=== PATIENT | female | born 1960 | race African-American/Black ===

== ENCOUNTER 2018-05-11 11:58 | Emergency (ER) | payer MEDICAID ==
[2018-05-11 12:03] VITALS: BP 135/71
[2018-05-11] MEDS ORDERED: KETOROLAC TROMETHAMINE 60 MG/2 ML SDV IM ONE (12:28)
[2018-05-11] MEDS ORDERED: DICYCLOMINE HCL 20 MG TABLET PO ONE (12:28)
--- NOTE | 2018-05-11 12:29 | ER Document Report ---
ED Medical Screen (RME) - General Chief Complaint: Abdominal Pain Stated Complaint: BACK/STOMACH PAIN Time Seen by Provider: 05/11/18 12:26 Notes: 58 years old female presents today with 4-day history of abdominal pain in the flanks as well as flank pain radiating to the front. This is on and off. Associated with nausea and vomited twice on Friday. No diarrhea but did not have any bowel movement since Friday morning. Irregular bowel habit. No fever chills or other constitutional symptoms. Denies any dysuria frequency urgency. Denies any narcotic pain medications intake. On examination-diffuse abdominal tenderness over the right and left side of the flanks. Positive bowel sounds - Related Data Allergies/Adverse Reactions: No Known Allergies Allergy (Unverified 05/11/18 11:59) Physical Exam - Vital signs Vitals: Temp Pulse Resp BP Pulse Ox 97.8 F 69 18 135/71 H 96 05/11/18 12:02 05/11/18 12:02 05/11/18 12:02 05/11/18 12:02 05/11/18 12:02 Course - Vital Signs Vital signs: Temp Pulse Resp BP Pulse Ox 97.8 F 69 18 135/71 H 96 05/11/18 12:02 05/11/18 12:02 05/11/18 12:02 05/11/18 12:02 05/11/18 12:02 Doctor's Discharge - Discharge Referrals: NADER PRICE PA [Primary Care Provider] - Follow up as needed
[2018-05-11 12:59] LABS: ABSOLUTE BASOPHILS # (AUTO) 0.1 10^3/uL (0.0-0.2); ABSOLUTE LYMPHOCYTES (AUTO) 1.6 10^3/uL (0.5-4.7); ABSOLUTE MONOCYTES (AUTO) 0.8 10^3/uL (0.1-1.4); ABSOLUTE NEUT (AUTO) 8.2 10^3/uL (1.7-8.2); EOSINOPHILS % (AUTO) 0.2 % (0-6); HEMOGLOBIN 13.7 g/dL (12.0-15.5); LYMPHOCYTES % (AUTO) 14.7 % (13-45); MEAN CORPUSCULAR HEMOGLOBIN 28.4 pg (27.0-33.4); MEAN CORPUSCULAR HGB CONC 34.3 g/dL (32.0-36.0); MEAN CORPUSCULAR VOLUME 83 fl (80-97); MONOCYTES % (AUTO) 7.2 % (3-13); PLATELET COUNT 243 10^3/uL (150-450); RED BLOOD COUNT 4.83 10^6/uL (3.72-5.28); RED CELL DISTRIBUTION WIDTH 14.3 % (11.5-14.0); SEGMENTED NEUTROPHILS % (AUTO) 76.9 % (42-78); TOTAL CELLS COUNTED % (AUTO) 100 %; WHITE BLOOD COUNT 10.7 10^3/uL (4.0-10.5)
[2018-05-11 13:11] LABS: APPEARANCE,URINE SLIGHTLY-CLOUDY; BILIRUBIN,URINE MODERATE (NEGATIVE); COLOR,URINE AMBER; GLUCOSE, URINE 50 mg/dL (NEGATIVE); KETONES,URINE 80 mg/dL (NEGATIVE); LEUKOCYTE ESTERASE,URINE NEGATIVE (NEGATIVE); NITRITE,URINE NEGATIVE (NEGATIVE); PROTEIN,URINE 100 mg/dL (NEGATIVE); URINE SPECIFIC GRAVITY 1.035
--- NOTE | 2018-05-11 13:36 | RADIOLOGY REPORT (SQ) ---
EXAM DESCRIPTION: ACUTE ABDOMEN SERIES COMPLETED DATE/TIME: 05/11/2018 1:04 pm REASON FOR STUDY: Abdominal pain COMPARISON: None. NUMBER OF VIEWS: Three views. TECHNIQUE: Frontal chest, supine abdomen and upright/decubitus abdomen radiographic images acquired. LIMITATIONS: None. FINDINGS: CHEST: Lungs clear of infiltrates. FREE AIR: None. No abnormal gas collections. BOWEL GAS PATTERN: Nonobstructive pattern. No dilated loops or air fluid levels. CALCIFICATIONS: No suspicious calcifications. HARDWARE: None in the abdomen. SOFT TISSUES: No gross mass or suggestion of organomegaly. BONES: No acute fracture. No worrisome bone lesions. OTHER: No other significant finding. IMPRESSION: NO RADIOGRAPHIC EVIDENCE FOR ACUTE ABDOMINAL DISEASE. TECHNICAL DOCUMENTATION: JOB ID: [id number] [employer]- All Rights Reserved Reading location - IP/workstation name: [email or web address]
--- NOTE | 2018-05-11 14:09 | ER Document Report ---
ED General - General Chief Complaint: Abdominal Pain Stated Complaint: BACK/STOMACH PAIN Time Seen by Provider: 05/11/18 12:26 Notes: Patient is a 58-year-old female presenting with abdominal pain. She says that it all started on Bruce night, which is about 3 days ago, after eating takeout shrimp and coleslaw. She explains crampy abdominal pain "like electricity" which rated around her abdomen. It is since improved, and got even better after she got Toradol and Bentyl from the triage provider. She had some nausea and vomiting and not ceased. She has not had a bowel movement. She is diabetic sugars are okay. Incidentally she is also on 2 different antibiotics "for a knot on my head" which looks like an abscess. Denies fevers abdominal surgeries blood per rectum dizziness or urinary symptoms. - Related Data Allergies/Adverse Reactions: No Known Allergies Allergy (Unverified 05/11/18 11:59) Past Medical History - Social History Smoking Status: Never Smoker Chew tobacco use (# tins/day): No Frequency of alcohol use: None Drug Abuse: None Family History: None Patient has suicidal ideation: No Patient has homicidal ideation: No Endocrine Medical History: Reports: Hx Diabetes Mellitus Type 2 Renal/ Medical History: Denies: Hx Peritoneal Dialysis Past Surgical History: Reports: Hx Hysterectomy Review of Systems - Review of Systems Notes: REVIEW OF SYSTEMS GEN: Denies fever, chills, weight loss ENT: Denies sore throat, nasal discharge, ear pain EYES: Denies blurry vision, eye pain, discharge CV: Denies chest pain, palpitations, edema RESP: Denies cough, shortness of breath, wheezing GI: Pain vomiting, resolving no diarrhea MSK: Denies joint pain/swelling, edema, SKIN: Denies rash, skin lesions LYMPH: Denies swollen glands/lymph nodes NEURO: Denies headache, focal weakness or numbness, dizziness PSYCH: Denies depression, suicidal or homicidal ideation PHYSICAL EXAMINATION General: No acute distress, well-nourished Head: Atraumatic, normocephalic ENT: Mouth normal, oropharynx moist, no exudates or tonsillar enlargement Eyes: Conjunctiva normal, pupils equal, lids normal Neck: No JVD, supple, no guarding CVS: Normal rate, regular rhythm, no murmurs Resp: No resp distress, equal and normal breath sounds bilaterally GI: Nondistended, soft, mild epi gastric tenderness to palpation, no rebound or guarding Ext: No deformities, no edema, normal range of motion in upper and lower ext Back: No CVA or midline TTP Skin: No rash, warm Lymphatic: No lymphadeopathy noted Neuro: Awake, alert. Face symmetric. GCS 15. Physical Exam - Vital signs Vitals: Temp Pulse Resp BP Pulse Ox 97.8 F 69 18 135/71 H 96 05/11/18 12:05/11/18 12:05/11/18 12:02 05/11/18 12:05/11/18 12:02 Course - Re-evaluation Re-evalutation: 05/11/18 14:11 Patient presents with resolved abdominal pain mostly epigastric for 3 days after a questionable meal intake. She had lots of vomiting but that is now better. She is keeping herself well-hydrated. She does not have diarrhea. There is no fever, the vital signs are normal. Tenderness which seemed diffuse at triage is now isolated to the epigastrium with no rebound guarding or signs. She is sitting up in the bed comfortably interacting with me with a smile on her face. Her labs been done and her white count is borderline elevated, chemistry was hemolyzed. She does not have vomiting and her sugars at home are normal so I doubt DKA. No evidence of UTI on physical exam or urinalysis. Next line she had an acute abdominal series ordered at triage which is normal. I do not believe she requires further imaging and I think she probably is suffering from a foodborne illness. Did discuss the possibility of intra-abdominal infection and surgical emergency which I feel is quite low, and given the fact that she is already tolerating p.o. and feels better after Bentyl I think she stable for discharge home with proper precautions. Prescribed Bentyl. She does have a resolving abscess on her occiput which looks good, so asked her to stop her antibiotics and she is Nuno been on for 5 days and may be extruding to her symptoms. Advance diet as tolerated. I have discussed with the patient there likely diagnosis, aftercare plan, follow -up plans and my usual and customary return precautions. They verbalized understanding of this. - Vital Signs Vital signs: Temp Pulse Resp BP Pulse Ox 97.8 F 69 18 135/71 H 96 05/11/18 12:02 05/11/18 12:02 05/11/18 12:02 05/11/18 12:02 05/11/18 12:02 - Laboratory Result Diagrams: 05/11/18 12:36 05/11/18 12:36 Laboratory results interpreted by me: 05/11/18 05/11/18 12:36 12:36 WBC 10.7 H RDW 14.3 H Urine Protein 100 H Urine Glucose (UA) 50 H Urine Ketones 80 H Urine Bilirubin MODERATE H Urine Urobilinogen 4.0 H - Diagnostic Test Radiology reviewed: Image reviewed Discharge - Discharge Clinical Impression: Epigastric abdominal pain Condition: Good Disposition: HOME, SELF-CARE Instructions: Abdominal Pain ([facility]), Antispasmodics ([facility]) Prescriptions: Dicyclomine HCl [Bentyl 10 mg Capsule] 1 cap PO TID #10 cap Referrals: NADER PRICE PA [Primary Care Provider] - Follow up as needed
== END 2018-05-11 14:19 | disposition home or self-care (01) ==
LOC: ER 11:58
DX: R10.13 Epigastric pain (principal); R11.2 Nausea with vomiting, unspecified; E11.9 Type 2 diabetes mellitus without complications; R22.0 Localized swelling, mass and lump, head
CPT/HCPCS: 99284; 36415; 85025; 81001; 74022; J3490; J1885

== ENCOUNTER 2018-05-12 18:17 | Emergency (ER) | payer MEDICAID ==
--- NOTE | 2018-05-12 19:09 | ER Document Report ---
ED Medical Screen (RME) - General Chief Complaint: Constipation Stated Complaint: ABDOMINAL PAIN Time Seen by Provider: 05/12/18 19:06 Notes: 58 years old female presents today with abdominal pain, she was seen here yesterday for abdominal pain diagnosed with constipation. She has not had a bowel movement for the last 5-6 days. Presents with lower abdominal pain. On examination seems to be in pain over the lower abdomen. TRAVEL OUTSIDE OF THE [place] IN LAST 30 DAYS: No - Related Data Allergies/Adverse Reactions: No Known Allergies Allergy (Verified 05/12/18 18:19) Past Medical History - Social History Chew tobacco use (# tins/day): No Frequency of alcohol use: None Drug Abuse: None Endocrine Medical History: Reports: Hx Diabetes Mellitus Type 2 Renal/ Medical History: Denies: Hx Peritoneal Dialysis Past Surgical History: Reports: Hx Hysterectomy Doctor's Discharge - Discharge Referrals: ANDER PRICE PA [Primary Care Provider] - Follow up as needed
[2018-05-12] MEDS ORDERED: FENTANYL CITRATE INJ/PF 100 MCG/2 ML AMPUL IV ONE (19:38)
--- NOTE | 2018-05-12 19:38 | ER Document Report ---
ED General - General Chief Complaint: Constipation Stated Complaint: ABDOMINAL PAIN Time Seen by Provider: 05/12/18 19:06 Notes: 58-year-old lady presents with ongoing abdominal pain. Now generalized. She was seen by me last night for isolated epigastric pain which resolved with Bentyl, which began several days prior in the setting of possible food ingestion. She states that the pain is now worse more generalized with nausea anorexia and no bowel movements. She has not vomited and has no fever. TRAVEL OUTSIDE OF THE [place] IN LAST 30 DAYS: No - Related Data Allergies/Adverse Reactions: No Known Allergies Allergy (Verified 05/12/18 18:19) Past Medical History - Social History Smoking Status: Current Every Day Smoker Chew tobacco use (# tins/day): No Frequency of alcohol use: None Drug Abuse: None Family History: None Patient has suicidal ideation: No Patient has homicidal ideation: No Endocrine Medical History: Reports: Hx Diabetes Mellitus Type 2 Renal/ Medical History: Denies: Hx Peritoneal Dialysis Past Surgical History: Reports: Hx Hysterectomy Review of Systems - Review of Systems Notes: REVIEW OF SYSTEMS GEN: Denies fever, chills, weight loss ENT: Denies sore throat, nasal discharge, ear pain EYES: Denies blurry vision, eye pain, discharge CV: Denies chest pain, palpitations, edema RESP: Denies cough, shortness of breath, wheezing GI: Abdominal pain a MSK: Denies joint pain/swelling, edema, SKIN: Denies rash, skin lesions LYMPH: Denies swollen glands/lymph nodes NEURO: Denies headache, focal weakness or numbness, dizziness PSYCH: Denies depression, suicidal or homicidal ideation PHYSICAL EXAMINATION General: No acute distress, well-nourished Head: Atraumatic, normocephalic ENT: Mouth normal, oropharynx moist, no exudates or tonsillar enlargement Eyes: Conjunctiva normal, pupils equal, lids normal Neck: No JVD, supple, no guarding CVS: Normal rate, regular rhythm, no murmurs Resp: No resp distress, equal and normal breath sounds bilaterally GI: Veys versus distended, exquisite tenderness throughout the abdominal area with positive guarding and mild rebound Ext: No deformities, no edema, normal range of motion in upper and lower ext Back: No CVA or midline TTP Skin: No rash, warm Lymphatic: No lymphadeopathy noted Neuro: Awake, alert. Face symmetric. GCS 15. Physical Exam - Vital signs Vitals: Temp Pulse Resp BP Pulse Ox 97.5 F 58 L 18 114/63 100 05/12/18 18:27 05/12/18 18:27 05/12/18 18:27 05/12/18 18:27 05/12/18 18:27 Course - Re-evaluation Re-evalutation: 05/13/18 02:01 Patient presents with acute abdominal pain with guarding concerning for intra- abdominal infection. Given pain medicine made n.p.o., ordered labs. Labs show neutrophilic shift but no true white count. Also show elevated LFTs but normal lipase. CT shows possible cholecystitisdiscussed with Dr. Brand. Patient reassessedfeeling better after medication. Ordered ultrasound per Dr. Brand's recommendation. This shows sludge and possible choledocholithiasis. Discussed with GI, Dr. Mcconnell, who cannot and do not does not do ERCP and recommended transfer. Discussed with [facility]. Discussed with [facility]. She was given broad-spectrum antibiotics to cover cholangitisdid not seem to have this at this time and is not altered. - Vital Signs Vital signs: Temp Pulse Resp BP Pulse Ox 98.8 F 63 18 116/62 93 05/12/18 23:48 05/12/18 23:48 05/12/18 23:48 05/12/18 23:48 05/12/18 23:48 - Laboratory Result Diagrams: 05/12/18 19:57 05/12/18 19:57 Laboratory results interpreted by me: 05/12/18 05/12/18 05/12/18 19:57 19:57 19:57 RDW 14.2 H Seg Neutrophils % 80.1 H Glucose 249 H Total Bilirubin 6.9 H Direct Bilirubin 5.8 H AST 162 H ALT 378 H Alkaline Phosphatase 373 H - Diagnostic Test Radiology reviewed: Image reviewed, Reports reviewed Discharge - Discharge Clinical Impression: Acute cholecystitis Condition: Fair Disposition: Critical [facility] Hospital Referrals: NADER PRICE PA [NO LOCAL MD] - Follow up as needed
[2018-05-12 20:13] LABS: ABSOLUTE LYMPHOCYTES (AUTO) 1.4 10^3/uL (0.5-4.7); ABSOLUTE MONOCYTES (AUTO) 0.5 10^3/uL (0.1-1.4); ABSOLUTE NEUT (AUTO) 7.7 10^3/uL (1.7-8.2); BASOPHILS % (AUTO) 0.2 % (0-2); EOSINOPHILS % (AUTO) 0.2 % (0-6); HEMATOCRIT 37.9 % (36.0-47.0); LYMPHOCYTES % (AUTO) 14.1 % (13-45); MEAN CORPUSCULAR HEMOGLOBIN 28.4 pg (27.0-33.4); MEAN CORPUSCULAR HGB CONC 34.3 g/dL (32.0-36.0); MEAN CORPUSCULAR VOLUME 83 fl (80-97); MONOCYTES % (AUTO) 5.4 % (3-13); PLATELET COUNT 230 10^3/uL (150-450); RED BLOOD COUNT 4.57 10^6/uL (3.72-5.28); RED CELL DISTRIBUTION WIDTH 14.2 % (11.5-14.0); SEGMENTED NEUTROPHILS % (AUTO) 80.1 % (42-78); TOTAL CELLS COUNTED % (AUTO) 100 %; WHITE BLOOD COUNT 9.6 10^3/uL (4.0-10.5)
[2018-05-12 20:31] LABS: ANION GAP 15 (5-19); BLOOD UREA NITROGEN 12 mg/dL (7-20); CARBON DIOXIDE 25 mmol/L (22-30); CHLORIDE 99 mmol/L (98-107); GLUCOSE 249 mg/dL (75-110); POTASSIUM 3.6 mmol/L (3.6-5.0)
[2018-05-12] MEDS ORDERED: AMPICILLIN SOD/SULBACTAM 3 GM VIAL IV ONE (21:05)
--- NOTE | 2018-05-12 21:21 | RADIOLOGY REPORT (SQ) ---
EXAM DESCRIPTION: CT ABDOMEN PELVIS WITH IV CONTRAST COMPLETED DATE/TME: 05/12/2018 19:24 CLINICAL HISTORY: 58 years, Female, abdominal pain COMPARISON: None. TECHNIQUE: 425 Images stored on PACS. All CT scanners at this facility use dose modulation, iterative reconstruction, and/or weight based dosing when appropriate to reduce radiation dose to as low as reasonably achievable (ALARA). [facility]: Dose Right [facility]: CareDose [facility]: Dose Right [facility]: Teradose 4D [facility]: [email or web address] LIMITATIONS: None. FINDINGS: Limited evaluation of the lung bases is unremarkable. Osseous structures are grossly intact. Fatty infiltrative change to the liver. The spleen, adrenal glands, and pancreas are unremarkable. Simple appearing renal cysts bilaterally. The kidneys are otherwise unremarkable. Normal appendix. Abundant stool in the colon. No gross evidence for bowel obstruction. No free air or free fluid. Mild atheromatous change. The gallbladder appears mildly distended. There is pericholecystic fluid with a prominent appearance to the biliary tree. The CBD measures 9.3 mm. There are punctate densities in the region of the distal common bile duct for which distal CBD stones are not excluded. Best seen on image #34, series #3. Acute cholecystitis is not excluded. Consider further assessment with dedicated ultrasound and/or hepatobiliary imaging. IMPRESSION: Distended appearance to the gallbladder with pericholecystic fluid and biliary ductal dilatation for which cholecystitis is not excluded. Consider further assessment with ultrasound and/or nuclear medicine imaging. In addition, questionable tiny stones near the region of the distal CBD for which choledocholithiasis is not excluded. This could be confirmed with MRCP or ERCP.. Fatty infiltrative change to the liver. TECHNICAL DOCUMENTATION: Quality ID # 436: Final reports with documentation of one or more dose reduction techniques (e.g., Automated exposure control, adjustment of the mA and/or kV according to patient size, use of iterative reconstruction technique) 2010 [employer]- All Rights Reserved
[2018-05-12 21:48] LABS: ALANINE AMINOTRANSFERASE 378 U/L (9-52); ALBUMIN 3.9 g/dL (3.5-5.0); ALKALINE PHOSPHATASE 373 U/L (38-126); ASPARTATE AMINO TRANSFERASE 162 U/L (14-36); BILIRUBIN,DIRECT 5.8 mg/dL (0.0-0.4); BILIRUBIN,TOTAL 6.9 mg/dL (0.2-1.3)
[2018-05-12] MEDS ORDERED: MORPHINE SULFATE 10 MG/ML INJ IV ONE (23:26)
[2018-05-12] MEDS ORDERED: NORMAL SALINE 1000 ML 1,000 ML IV ONE (23:26)
--- NOTE | 2018-05-12 23:45 | RADIOLOGY REPORT (SQ) ---
EXAM DESCRIPTION: US ABDOMEN LIMITED COMPLETED DATE/TME: 05/12/2018 21:05 CLINICAL HISTORY: 58 years, Female, mike Compared to CT abdomen pelvis dated 05/12/2018 at 8:54 PM. FINDINGS: Pancreas is not well visualized due to shadowing. Aorta and IVC are within normal limits. Liver demonstrates fatty infiltration but no focal lesions. Portal vein is patent and demonstrates hepatopedal flow. Gallbladder demonstrates numerous small echogenic foci consistent with calculi. Gallbladder wall is moderately thickened to 5 mm. Gallbladder is also significantly distended. No significant biliary dilatation with CBD measuring 5 mm. No right hydronephrosis. No right upper quadrant ascites. IMPRESSION: Cholelithiasis with moderate gallbladder wall thickening, consistent with cholecystitis.
[2018-05-13 01:59] VITALS: BP 114/63
--- NOTE | 2018-05-13 09:01 | PDOC CONSULTATION ---
History of Present Illness Admission Date/PCP: 05/12/18 Patient complains of: abdominal pains History of Present Illness: DIXON CARDENAS is a 58 year old female with a few days duration of persistent epigastric pains associated with nausea and constipation. Had Ct scan of abdomen and ultrasound which showed acute cholecystitis with cholelithiasis and choledocholethiasis with elevated LFTs. Past Medical History Endocrine Medical History: Reports: Diabetes Mellitus Type 2 Past Surgical History Past Surgical History: Reports: Hysterectomy Social History Smoking Status: Current Every Day Smoker Family History Family History: None Parental Family History Reviewed: Yes Children Family History Reviewed: No Sibling(s) Family History Reviewed.: No Medication/Allergy Home Medications: Dicyclomine HCl [Bentyl 10 mg Capsule] 1 cap PO TID #10 cap 05/11/18 Allergies/Adverse Reactions: No Known Allergies Allergy (Verified 05/12/18 18:19) Review of Systems Constitutional: PRESENT: other - no fever/chills Eyes: PRESENT: other - no visual/hearing changes Respiratory: PRESENT: other - no cough/chest pains Gastrointestinal: PRESENT: abdominal pain, constipation, nausea Genitourinary: PRESENT: other - no dysuria Neurological: PRESENT: other - no seizures Physical Exam Vital Signs: Temp Pulse Resp BP Pulse Ox 98.8 F 63 18 116/62 93 05/12/18 23:48 05/12/18 23:48 05/12/18 23:48 05/12/18 23:48 05/12/18 23:48 Intake & Output 05/12/18 05/13/18 05/14/18 06:59 06:59 06:59 Intake Total 1000 Balance 1000 Weight 102 kg General appearance: PRESENT: mild distress Head exam: PRESENT: atraumatic Eye exam: PRESENT: conjunctiva pink Mouth exam: PRESENT: moist Neck exam: PRESENT: full ROM Respiratory exam: PRESENT: clear to auscultation gail Cardiovascular exam: PRESENT: RRR Pulses: PRESENT: normal radial pulses Vascular exam: PRESENT: normal capillary refill GI/Abdominal exam: PRESENT: soft, tenderness - Epigastric and RUQ Rectal exam: PRESENT: deferred Extremities exam: PRESENT: full ROM Neurological exam: PRESENT: alert, oriented to person, oriented to place, oriented to time, oriented to situation Psychiatric exam: PRESENT: anxious Skin exam: PRESENT: normal color, warm Results Laboratory Results: 05/12/18 19:57 05/12/18 19:57 05/12/18 05/12/18 05/12/18 19:57 19:57 19:57 WBC 9.6 RBC 4.57 Hgb 13.0 Hct 37.9 MCV 83 MCH 28.4 MCHC 34.3 RDW 14.2 H Plt Count 230 Seg Neutrophils % 80.1 H Lymphocytes % 14.1 Monocytes % 5.4 Eosinophils % 0.2 Basophils % 0.2 Absolute Neutrophils 7.7 Absolute Lymphocytes 1.4 Absolute Monocytes 0.5 Absolute Eosinophils 0.0 Absolute Basophils 0.0 Sodium 139.0 Potassium 3.6 Chloride 99 Carbon Dioxide 25 Anion Gap 15 BUN 12 Creatinine 0.72 Est GFR ( Amer) > 60 Est GFR (Non-Af Amer) > 60 Glucose 249 H Calcium 10.0 Total Bilirubin 6.9 H AST 162 H ALT 378 H Alkaline Phosphatase 373 H Total Protein 7.0 Albumin 3.9 Lipase 05/12/18 19:57 WBC RBC Hgb Hct MCV MCH MCHC RDW Plt Count Seg Neutrophils % Lymphocytes % Monocytes % Eosinophils % Basophils % Absolute Neutrophils Absolute Lymphocytes Absolute Monocytes Absolute Eosinophils Absolute Basophils Sodium Potassium Chloride Carbon Dioxide Anion Gap BUN Creatinine Est GFR ( Amer) Est GFR (Non-Af Amer) Glucose Calcium Total Bilirubin AST ALT Alkaline Phosphatase Total Protein Albumin Lipase 32.7 Impressions: Abdomen/Pelvis CT 05/12/18 19:24 IMPRESSION: Distended appearance to the gallbladder with pericholecystic fluid and biliary ductal dilatation for which cholecystitis is not excluded. Consider further assessment with ultrasound and/or nuclear medicine imaging. In addition, questionable tiny stones near the region of the distal CBD for which choledocholithiasis is not excluded. This could be confirmed with MRCP or ERCP.. Fatty infiltrative change to the liver. TECHNICAL DOCUMENTATION: Quality ID # 436: Final reports with documentation of one or more dose reduction techniques (e.g., Automated exposure control, adjustment of the mA and/or kV according to patient size, use of iterative reconstruction technique) 2010 [employer]- All Rights Reserved Abdomen Ultrasound 05/12/18 21:05 IMPRESSION: Cholelithiasis with moderate gallbladder wall thickening, consistent with cholecystitis. Assessment & Plan - Diagnosis (1) Choledocholithiasis with acute cholecystitis Is this a current diagnosis for this admission?: Yes - Time Time Spent: 30 to 50 Minutes - Plan Summary Plan Summary: Since we don't have a GI available who does ERCP agree to transfer patient to a Tertiary hospital Agree to start IV antibiotics
== END 2018-05-13 02:05 | disposition short-term general hospital (02) ==
LOC: ER 18:17
DX: K81.0 Acute cholecystitis (principal); R10.84 Generalized abdominal pain; R10.13 Epigastric pain; R11.0 Nausea; R63.0 Anorexia; K59.00 Constipation, unspecified; F17.200 Nicotine dependence, unspecified, uncomplicated; E11.9 Type 2 diabetes mellitus without complications
CPT/HCPCS: 99285; 96361; 96375; 96365; 36415; 83690; 85025; 80076; 80048; 76705; 74177; J3010; J0295; J2270; J7030